=== PATIENT | female | born 1945 | race Caucasian/White ===

== ENCOUNTER → 2016-04-14 | Outpatient (CLI) | payer MEDICARE, MEDICAID ==
--- NOTE | 2016-04-14 12:48 | CR ---
EXAMINATION: Cervical spine HISTORY: Pain COMPARISON: MRI dated 05/10/2015 TECHNIQUE: AP and lateral views FINDINGS: The cervical spinal alignment appears grossly normal. The vertebral height heights appear maintained. There is anterior cervical fusion of C5-C6 with osseous vertebral body fusion also noted . Mild marginal osteophytes are noted. Disc space narrowing is noted C3-C4. No fracture or acute oss eous abnormality. IMPRESSION: Degenerative and postoperative changes without acute osseous abnormality.
== END | disposition home or self-care (01) ==
LOC: MW.CHIM 09:13
PROVIDERS: ATTEND Internal Medicine
DX: M54.2 Cervicalgia (principal); M47.892 Other spondylosis, cervical region; B18.2 Chronic viral hepatitis C; G89.4 Chronic pain syndrome; M79.7 Fibromyalgia; M96.1 Postlaminectomy syndrome, not elsewhere classified; Z98.890 Other specified postprocedural states
CPT/HCPCS: 72040; 72040-26; 99214

== ENCOUNTER → 2016-04-26 | Outpatient (CLI) | payer MEDICARE, MEDICAID | LOC: MW.LAB 09:29 | PROVIDERS: ATTEND Internal Medicine Infectious Disease | DX: B18.2 Chronic viral hepatitis C (principal); K74.60 Unspecified cirrhosis of liver | CPT/HCPCS: 36415; 87522; 96372; J3420 ==

== ENCOUNTER → 2016-06-08 | Outpatient (CLI) | payer MEDICARE, MEDICAID | LOC: MW.CHIM 08:00 | PROVIDERS: ATTEND Internal Medicine | DX: E53.8 Deficiency of other specified B group vitamins (principal) | CPT/HCPCS: 96372; J3420 ==

== ENCOUNTER → 2016-07-12 | Outpatient (CLI) | payer MEDICARE, MEDICAID | LOC: MW.CHIM 08:00 | PROVIDERS: ATTEND Internal Medicine | DX: E53.8 Deficiency of other specified B group vitamins (principal); G89.4 Chronic pain syndrome; Z79.891 Long term (current) use of opiate analgesic; K74.60 Unspecified cirrhosis of liver | CPT/HCPCS: 96372; 99214; J3420 ==

== ENCOUNTER 2021-05-08 18:53 | Emergency (ER) | payer MEDICARE, MEDICAID ==
[2021-05-08] MEDS ORDERED: Sodium Chloride 0.9% 10 ML Syringe FLUSH PRN (19:40)
[2021-05-08] MEDS ORDERED: Sodium Chloride 0.9% 2.5 ML Syringe FLUSH PRN (19:40)
[2021-05-08] MEDS ORDERED: Sodium Chloride 0.9% 1,000 ML IV ONE (19:41)
[2021-05-08 20:25] LABS: CARBON DIOXIDE,CO2 27.6 mmol/L (21.0-32.0); ESTIMATED GFR 48.3 ml/min; POTASSIUM,K 4.1 mmol/L (3.5-5.1)
[2021-05-08] MEDS ORDERED: Iopamidol 755 MG/ML 500 ML Multipack Bottle IVPUSH ONE (20:38)
[2021-05-08 20:44] LABS: CORONAVIRUS COVID-19 NAA NEGATIVE (NEGATIVE); INFLUENZA A NAA NEGATIVE (NEGATIVE); INFLUENZA B NAA NEGATIVE (NEGATIVE)
[2021-05-08 21:46] VITALS: BP 107/60; PULSE 69
[2021-05-08] MEDS ORDERED: oxyCODONE 5 MG Tab PO ONE (21:51)
== END 2021-05-08 22:08 | disposition home or self-care (01) ==
LOC: MW.ED 18:53
DX: K62.5 Hemorrhage of anus and rectum (principal); K52.9 Noninfective gastroenteritis and colitis, unspecified; Z88.0 Allergy status to penicillin; Z88.2 Allergy status to sulfonamides; Z88.8 Allergy status to other drugs, medicaments and biological substances; Z20.822 Contact with and (suspected) exposure to COVID-19; R94.31 Abnormal electrocardiogram [ECG] [EKG]
CPT/HCPCS: 0240U; 36415; 74177; 80053; 81001; 83735; 85025; 85610; 87086; 93005; 99284; A9270; J7030; Q9967; 93010; J3490

== ENCOUNTER 2021-07-06 10:18 | Day surgery (SDC) | payer MEDICARE, MEDICAID ==
[~2021-07-06 10:18] MED LIST: Lactated Ringers 1,000 ML IV SCH
[2021-07-06] MEDS ORDERED: Propofol 200 MG/20 ML SDV ONE (11:43)
[2021-07-06] MEDS ORDERED: fentaNYL 100 MCG/2 ML SDV ONE (11:43)
[2021-07-06 13:45] VITALS: BP 114/56; PULSE 64
== END 2021-07-06 13:00 | disposition home or self-care (01) ==
LOC: MW.SDS 10:18
PROVIDERS: ATTEND Surgery
DX: D12.0 Benign neoplasm of cecum (principal); K52.9 Noninfective gastroenteritis and colitis, unspecified; E55.9 Vitamin D deficiency, unspecified; Z90.49 Acquired absence of other specified parts of digestive tract; Z79.899 Other long term (current) drug therapy; Z88.8 Allergy status to other drugs, medicaments and biological substances; Z88.0 Allergy status to penicillin; Z88.2 Allergy status to sulfonamides; Z98.890 Other specified postprocedural states; Z87.891 Personal history of nicotine dependence
CPT/HCPCS: 45380; J2370; J2704; J3010; J7120; 00811; 99100

== ENCOUNTER 2022-10-09 10:29 | Emergency (ER) | payer MEDICARE, MEDICAID ==
[2022-10-09] MEDS ORDERED: HYDROmorphone 1 MG/ML Syringe IVPUSH ONE (11:39)
[2022-10-09 11:57] LABS: ALBUMIN 3.9 g/dL (3.4-5.0); BASOPHILS PERCENT AUTO 0.4 % (0.0-1.5); BILIRUBIN TOTAL 0.7 mg/dL (0.2-1.0); CALCIUM 9.1 mg/dL (8.5-10.1); CARBON DIOXIDE,CO2 30.5 mmol/L (21.0-32.0); EOSINOPHILS ABSOLUTE AUTO 0.1 K/uL (0.0-0.7); EOSINOPHILS PERCENT AUTO 1.4 % (0.0-7.0); EST CRCL DRUG DOSING (CG) 33.74 mL/min; HEMATOCRIT 38.9 % (36.0-46.0); HEMOGLOBIN 12.3 g/dL (12.0-16.0); LYMPHOCYTES ABSOLUTE AUTO 0.7 K/uL (0.6-2.4); LYMPHOCYTES PERCENT AUTO 13.6 % (16.0-40.0); MEAN CORPUSCULAR HEMOGLOBIN 29.2 pg (27.0-32.0); MEAN CORPUSCULAR HGB CONC 31.6 g/dL (31.0-37.0); MEAN CORPUSCULAR VOLUME 92.4 fL (80.0-98.0); MONOCYTES ABSOLUTE AUTO 0.5 K/uL (0.0-0.8); MONOCYTES PERCENT AUTO 9.1 % (0.0-15.0); NEUTROPHILS ABSOLUTE AUTO 3.7 K/uL (1.4-5.7); NEUTROPHILS PERCENT AUTO 75.5 % (48.0-80.0); NRBC ABSOLUTE 0 K/uL; PLATELET COUNT,PLT 194 K/uL (150-400); POTASSIUM,K 4.4 mmol/L (3.5-5.1); RED BLOOD CELL COUNT 4.21 M/uL (4.30-5.90); WHITE BLOOD CELL COUNT,WBC 4.92 K/uL (4.0-11.0)
[2022-10-09 12:04] LABS: INR 0.97 (0.86-1.11)
[2022-10-09] MEDS ORDERED: HYDROmorphone 2 MG/ML Syringe IVPUSH ONE (14:09)
[2022-10-09] MEDS ORDERED: Lidocaine 4% 1 each Patch TOP PRN (14:14)
[2022-10-09] MEDS ORDERED: Iopamidol 755 MG/ML 500 ML Multipack Bottle IVPUSH STA (14:18)
[2022-10-09 15:06] VITALS: BP 109/74; PULSE 90
== END 2022-10-09 15:06 | disposition home or self-care (01) ==
LOC: MW.ED 10:29
DX: R07.89 Other chest pain (principal); Z88.0 Allergy status to penicillin; Z88.1 Allergy status to other antibiotic agents; Z88.2 Allergy status to sulfonamides; Z88.8 Allergy status to other drugs, medicaments and biological substances
CPT/HCPCS: 36415; 71275; 80053; 83690; 84484; 85025; 85610; 93005; 96374; 96376; 99285; A9270; J1170; Q9967; 93010; 99284

== ENCOUNTER 2022-10-16 10:15 | Day surgery (SDC) | payer MEDICARE, MEDICAID ==
[2022-10-16] MEDS ORDERED: Lidocaine 2% 5 ML SDV ONE (11:33)
[2022-10-16] MEDS ORDERED: Propofol 200 MG/20 ML SDV ONE (11:34)
[2022-10-16] MEDS ORDERED: Lactated Ringers 1,000 ML IV SCH (12:00)
[2022-10-16 13:18] VITALS: BP 122/74; PULSE 72
== END 2022-10-16 12:45 | disposition home or self-care (01) ==
LOC: MW.SDS 10:15
PROVIDERS: ATTEND Surgery
DX: K29.00 Acute gastritis without bleeding (principal); K29.50 Unspecified chronic gastritis without bleeding; K22.89 Other specified disease of esophagus; G89.29 Other chronic pain; M79.7 Fibromyalgia; E78.5 Hyperlipidemia, unspecified; I10 Essential (primary) hypertension; M85.80 Other specified disorders of bone density and structure, unspecified site; E61.1 Iron deficiency; M54.2 Cervicalgia; K27.9 Peptic ulcer, site unspecified, unspecified as acute or chronic, without hemorrhage or perforation; Z90.49 Acquired absence of other specified parts of digestive tract; Z87.19 Personal history of other diseases of the digestive system; Z98.0 Intestinal bypass and anastomosis status; Z80.9 Family history of malignant neoplasm, unspecified; Z88.8 Allergy status to other drugs, medicaments and biological substances; Z88.0 Allergy status to penicillin; Z88.2 Allergy status to sulfonamides; Z79.899 Other long term (current) drug therapy; Z79.891 Long term (current) use of opiate analgesic; Z87.891 Personal history of nicotine dependence; Z88.1 Allergy status to other antibiotic agents; Z79.82 Long term (current) use of aspirin
CPT/HCPCS: 43239; 88305; 88342; J2704; J7120; 00731; 99100; J3490

== ENCOUNTER 2024-03-04 10:20 | Day surgery (SDC) | payer MEDICARE, MEDICAID ==
[~2024-03-04 10:20] MED LIST changes: +Sodium Chloride 0.9% 10 ML Syringe FLUSH PRN; +Sodium Chloride 0.9% 2.5 ML Syringe FLUSH PRN; +Sodium Chloride 0.9% 20 ML SDV IV PRN
[2024-03-04] MEDS: Lactated Ringers 1,000 ML IV SCH (10:40)
[2024-03-04] MEDS ORDERED: Propofol 200 MG/20 ML SDV ONE (11:16)
[2024-03-04 12:40] VITALS: BP 118/67; PULSE 72
== END 2024-03-04 13:10 | disposition home or self-care (01) ==
LOC: MW.SDS 10:20
PROVIDERS: ATTEND Surgery
DX: K29.50 Unspecified chronic gastritis without bleeding (principal); I10 Essential (primary) hypertension; Z98.84 Bariatric surgery status; Z88.8 Allergy status to other drugs, medicaments and biological substances; Z88.0 Allergy status to penicillin; Z88.2 Allergy status to sulfonamides; Z79.899 Other long term (current) drug therapy; Z87.891 Personal history of nicotine dependence
CPT/HCPCS: 43239; J2704; J7120; 00731; 88305; 88342; 99100